=== PATIENT | female | born 1975 | race African-American/Black ===

== ENCOUNTER 2017-04-26 15:53 | Emergency (ER) | payer OTHER ==
[2017-04-26 16:29] VITALS: BP 140/69; PULSE 71; TEMP 98; BMI 32.3
[2017-04-26] MEDS ORDERED: IBUPROFEN 400 MG TABLET (FP) PO ONE ×2 (16:33→17:00)
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
== END 2017-04-26 17:27 | disposition home or self-care (01) ==
LOC: JERFT 15:53
DX: S93.601A Unspecified sprain of right foot, initial encounter (principal); X50.1XXA Overexertion from prolonged static or awkward postures, initial encounter; Y93.F9 Activity, other caregiving; Y92.218 Other school as the place of occurrence of the external cause; Y99.0 Civilian activity done for income or pay
CPT/HCPCS: 73610-TC-RT; 73630-TC-RT; 99281-25

== ENCOUNTER 2018-08-30 10:56 | Emergency (ER) | payer OTHER ==
[2018-08-30 11:08] VITALS: TEMP 98.8; BMI 33.9
--- NOTE | 2018-08-30 11:22 | PDOC ---
History of Present Illness - General Chief Complaint: Chest Pain Stated Complaint: BLOOD PRESSURE PROBLEM Time Seen by Provider: 08/30/18 11:21 - History of Present Illness Initial Comments: The patient is a 43F w/ a history of arthritis who presents for evaluation of 5 days of chest pain. The patient describes the pain as intermittent, achy, reproducible, non-radiating pain just left of the sternum. The pain is worse with touch and deep inspiration. She is unsure if the pain was sudden onset or gradual The patient reports recently increasing her physical activity, including weight lifting. She denies associated KNAPP, changes in vision, shortness of breath, fevers, abdominal pain, or changes in sensation 08/30/18 11:44 Past History - Past Medical History Allergies/Adverse Reactions: Allergies Allergy/AdvReac Type Severity Reaction Status Date / Time No Known Allergies Allergy Verified 08/30/18 11:02 Home Medications: Ambulatory Orders NK [No Known Home Medication] 06/08/15 COPD: No HTN: Yes - Immunization History Immunization Up to Date: Yes - Suicide/Smoking/Psychosocial Hx Smoking History: Current every day smoker Have you smoked in the past 12 months: No Number of Cigarettes Smoked Daily: 2 If you are a former smoker, when did you quit?: 10 years Information on smoking cessation initiated: No Hx Alcohol Use: Yes (about 5 times/week) Drug/Substance Use Hx: No Substance Use Type: Alcohol Review of Systems - Review of Systems Able to Perform ROS?: Yes Comments:: GENERAL/CONSTITUTIONAL: No fever or chills. No weakness HEAD, EYES, EARS, NOSE AND THROAT: No change in vision. No ear pain or discharge. No sore throat CARDIOVASCULAR: No shortness of breath or BLE swelling RESPIRATORY: No cough, wheezing, or hemoptysis GASTROINTESTINAL: No nausea, vomiting, diarrhea or constipation GENITOURINARY: No dysuria, frequency, or change in urination MUSCULOSKELETAL: No joint or muscle swelling or pain. No neck or back pain SKIN: No rash NEUROLOGIC: No headache, vertigo, loss of consciousness, or change in strength/ sensation ENDOCRINE: No increased thirst. No abnormal weight change HEMATOLOGIC/LYMPHATIC: No anemia, easy bleeding, or history of blood clots ALLERGIC/IMMUNOLOGIC: No hives or skin allergy 08/30/18 12:20 Is the patient limited Chinese proficient: No *Physical Exam - Vital Signs Last Vital Signs Temp Pulse Resp BP Pulse Ox 98.8 F 79 18 186/102 H 97 08/30/18 11:02 08/30/18 11:02 08/30/18 11:02 08/30/18 11:02 08/30/18 11:02 - Physical Exam Comments: GENERAL: Awake, alert, and fully oriented, in no acute distress HEAD: No signs of trauma, normocephalic, atraumatic EYES: PERRLA, EOMI, sclera anicteric, conjunctiva clear ENT: Auricles normal inspection, hearing grossly normal, nares patent, oropharynx clear without exudates. Moist mucosa NECK: Normal ROM, supple, no lymphadenopathy, JVD, or masses LUNGS: No distress, speaks full sentences, clear to auscultation bilaterally HEART: Regular rate and rhythm, normal S1 and S2, no murmurs, rubs or gallops, peripheral pulses normal and equal bilaterally CHEST: Reproducible L ant. chest pain ABDOMEN: Soft, nontender, normoactive bowel sounds. No guarding, no rebound EXTREMITIES : Normal inspection, Normal range of motion, no edema. No clubbing or cyanosis NEUROLOGICAL: Cranial nerves II through XII grossly intact. Normal speech, normal gait, no focal sensorimotor deficits SKIN: Warm, Dry, normal turgor, no rashes or lesions noted 08/30/18 12:22 ED Treatment Course - LABORATORY CBC & Chemistry Diagram: 08/30/18 12:00 08/30/18 12:00 Medical Decision Making - Medical Decision Making The patient presents for 5d of intermittent L sided chest pain Ddx: ACS, PE, MSK pain; considered PNA, PNX; not likely but considered AD CMP, CBC, cardiac profile, D-dimer, Coags ECG CXR 1L NS Toradol 15mg IV once for pain Patient does not have a PCP and does not currently take any medications 08/30/18 11:42 ECG w/o evidence of acute ischemia, RRR w/ 1 PVC 08/30/18 12:23 No leukocytosis No anemia 08/30/18 12:42 Trop I neg, not likely NC D-dimer neg, low likelihood of PE Lytes wnl UA w/o evidence of UTI CXR w/o evidence of PNA, PNX Repeat BP 127/73 Pain likely MSK Pain improved s/p Toradol IV Plan of D/C w/ PCP f/u Discharge instructions and return precautions given Patient is in agreement and verbalizes understanding Dispo: home 08/30/18 13:14 *DC/Admit/Observation/Transfer Diagnosis at time of Disposition: Chest pain Qualifiers: Chest pain type: unspecified Qualified Code(s): R07.9 - Chest pain, unspecified - Discharge Dispostion Disposition: HOME Condition at time of disposition: Improved Decision to Admit order: No - Referrals Referrals: [facility] [Provider Group] Cristobal Hawley MD [Staff Physician] - - Patient Instructions Printed Discharge Instructions: DI for Chest Pain Additional Instructions: You were seen in the Emergency Room for evaluation of chest pain. Please review the handout provided with discharge. Please follow up with your primary care provider within the next 1-3 days. Return to the Emergency Room if you develop worsening pain, fevers, shortness of breath or any new/concerning symptoms - Post Discharge Activity Forms/Work/School Notes: Back to Work
[2018-08-30] MEDS ORDERED: KETOROLAC TROMETHAMINE 15 MG/ML VIAL IVPUSH ONE (11:46)
[2018-08-30] MEDS ORDERED: SODIUM CHLORIDE 0.9% 500 ML INFUS.BAG IV ONE (11:46)
--- NOTE | 2018-08-30 12:01 | PDOC ---
Attending Attestation - Resident Resident Name: Manjinder Davis - ED Attending Attestation I have performed the following: I have examined & evaluated the patient, The case was reviewed & discussed with the resident, I agree w/resident's findings & plan, Exceptions are as noted - Medical Decision Making 08/30/18 11:47 A portion of this note was documented by scribe services under my direction. I have reviewed the details of the note, within reason, and agree with the documentation with the following case summary and management plan written by me. Patient treated in the ED. Nursing notes are reviewed and incorporated into the medical decision-making. Vital signs reviewed. Peripheral IV access obtained by the nurse, laboratory studies are drawn and sent, reviewed and interpreted by myself. Vital Signs Temp Pulse Resp BP Pulse Ox 98.8 F 79 18 186/102 H 97 08/30/18 11:02 08/30/18 11:02 08/30/18 11:02 08/30/18 11:02 08/30/18 11:02 43-year-old obese female with no past medical history, also with no primary care physician, presents with chest pain for 5 days. 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 She believes that lifting has made exacerbated her pain. However, patient reports intermittent reproducible left upper chest pain. Denies shortness of breath. Denies nausea, vomiting, diabetes. Denies exertional component. Patient has never had a recent stress test or an echo. Patient does report a grandmother with a heart attack. Because the pain is last for 5 days, patient came to the ER for an evaluation. Denies prior blood clots, strokes, MIs. Patient's chest pain is atypical for acute coronary syndrome or pulmonary embolism. However, patient noted be hypertensive. EKG is reassuring but we'll send labs including a troponin and d-dimer. Chest x-ray. We'll trial NSAIDs. If the workup is unremarkable, we'll arrange follow-up with a primary care physician for an outpatient basis. 08/30/18 13:34 CBC, BMP 08/30/18 12:00 08/30/18 12:00 CMP Sodium 140 mmol/L (136-145) 08/30/18 12:00 Potassium 4.3 mmol/L (3.5-5.1) 08/30/18 12:00 Chloride 104 mmol/L (98-107) 08/30/18 12:00 Carbon Dioxide 30 mmol/L (21-32) 08/30/18 12:00 Anion Gap 5 MMOL/L (8-16) L 08/30/18 12:00 BUN 8 mg/dL (7-18) 08/30/18 12:00 Creatinine 0.7 mg/dL (0.55-1.3) 08/30/18 12:00 Creat Clearance w eGFR > 60 (>60) 08/30/18 12:00 Random Glucose 96 mg/dL (74-106) 08/30/18 12:00 Calcium 8.9 mg/dL (8.5-10.1) 08/30/18 12:00 Total Bilirubin 0.4 mg/dL (0.2-1) 08/30/18 12:00 AST 19 U/L (15-37) 08/30/18 12:00 ALT 16 U/L (13-61) 08/30/18 12:00 Alkaline Phosphatase 74 U/L (45-117) 08/30/18 12:00 Creatine Kinase 246 IU/L (26-192) H 08/30/18 12:00 Troponin I < 0.02 ng/ml (0.00-0.05) 08/30/18 12:00 Total Protein 7.6 g/dl (6.4-8.2) 08/30/18 12:00 Albumin 4.0 g/dl (3.4-5.0) 08/30/18 12:00 D-dimer negative. Chest xray reviewed: negative. Final diagnosis: atypical chest pain. I feel comfortable discharging patient home for outpatient followup. Will have medical customer service representative will arrange appointment with PMD. <Abhay Brunson - Last Filed: 08/30/18 13:34> - HPI HPI: 08/30/18 12:08 The patient is a 43-year-old female, with no past medical history, who presents to the ED with 5 days of left upper chest pain. Patient works at the [employer] which requires her to lift heavy objects. The patient states that her pain is intermittent, reproducible with palpation, and exacerbated with heavy lifting. She denies having any stress test or an echo in the past . She denies having fever, chills, nausea, vomiting, diarrhea, or abdominal pain. Allergies: NKA Past surgical history: None reported. Social history: None reported - Physicial Exam PE: 08/30/18 12:08 GENERAL: (+)Obese. Awake, alert, and fully oriented, in no acute distress HEAD: No signs of trauma EYES: PERRLA, EOMI, sclera anicteric, conjunctiva clear ENT: Auricles normal inspection, hearing grossly normal, nares patent, oropharynx clear without exudates. Moist mucosa NECK: Normal ROM, supple, no lymphadenopathy, JVD, or masses LUNGS: Breath sounds equal, clear to auscultation bilaterally. No wheezes, and no crackles HEART: Regular rate and rhythm, normal S1 and S2, no murmurs, rubs or gallops ABDOMEN: Soft, nontender, normoactive bowel sounds. No guarding, no rebound. No masses MSK: (+)Reproducible left upper chest pain. EXTREMITIES: Normal range of motion, no edema. No clubbing or cyanosis. No cords, erythema, or tenderness NEUROLOGICAL: Cranial nerves II through XII grossly intact. Normal speech, normal gait SKIN: Warm, Dry, normal turgor, no rashes or lesions noted. <Maame Bar - Last Filed: 08/30/18 14:00> Heart Score/ECG Review - History History: Slightly suspicious - Electrocardiogram EKG: Normal - Age Age: </= 43 - Risk Factors Risk Factors Heart Score: Yes Hx Obesity Based on the list above the patient has:: 1-2 risk factors #1 ECG reviewed & interpreted by me at: 11:10 08/30/18 11:46 NSR 74, occasional PVC, no std/vika, normal axis, normal intervals, QTC 435 msec <Abhay Brunson - Last Filed: 08/30/18 13:34> Attestations - Attestations 08/30/18 12:10 Documentation prepared by Maame Bar, acting as emergency medicine medical director for Abhay Brunson MD. <Maame Bar - Last Filed: 08/30/18 14:00>
[2018-08-30] MEDS ORDERED: KETOROLAC TROMETHAMINE 15 MG/ML VIAL ONE (12:04)
[2018-08-30 12:27] LABS: BASO % 0.5 % (0-2.0); EOS % 1.6 % (0-4.5); HEMATOCRIT 44.3 % (32.4-45.2); HEMOGLOBIN 14.9 GM/dL (10.7-15.3); LYMPH % 19.4 % (8-40); MCH 30.9 pg (25.7-33.7); MCHC 33.6 g/dl (32.0-36.0); MEAN CELL VOLUME 91.9 fl (80-96); MEAN PLT VOLUME 9.4 fl (7.5-11.1); MONO % 3.7 % (3.8-10.2); NEUT % 74.8 % (42.8-82.8); PLATELET COUNT 265 K/MM3 (134-434); RBC 4.81 M/mm3 (3.60-5.2); RDW 12.7 % (11.6-15.6); WHITE BLOOD COUNT 7.7 K/mm3 (4.0-10.0)
[2018-08-30 12:48] LABS: INR 1.04 (0.83-1.09); PROTHROMBIN TIME (PATIENT) 12.3 SEC (9.7-13.0)
[2018-08-30 12:51] LABS: ACTIVATED PTT 31.9 SECONDS (25.2-36.5)
[2018-08-30 13:08] LABS: ALK PHOS 74 U/L (45-117); ANION GAP 5 MMOL/L (8-16); BILIRUBIN,TOTAL 0.4 mg/dL (0.2-1); BLOOD UREA NITROGEN 8 mg/dL (7-18); CALCIUM 8.9 mg/dL (8.5-10.1); CHLORIDE 104 mmol/L (98-107); CO2 30 mmol/L (21-32); CREATININE 0.7 mg/dL (0.55-1.3); GLUCOSE,RANDOM 96 mg/dL (74-106); POTASSIUM 4.3 mmol/L (3.5-5.1); SGOT/AST 19 U/L (15-37); SGPT/ALT 16 U/L (13-61); SODIUM 140 mmol/L (136-145); TOT PROT 7.6 g/dl (6.4-8.2)
[2018-08-30 13:56] VITALS: BP 162/77; PULSE 82
--- NOTE | 2018-08-30 16:13 | EKG ---
Test Reason : Blood Pressure : / mmHG Vent. Rate : 074 BPM Atrial Rate : 074 BPM P-R Int : 144 ms QRS Dur : 082 ms QT Int : 392 ms P-R-T Axes : 065 005 062 degrees QTc Int : 435 ms SINUS RHYTHM WITH OCCASIONAL PREMATURE VENTRICULAR COMPLEXES OTHERWISE NORMAL ECG WHEN COMPARED WITH ECG OF 30-DEC-2015 20:35, PREMATURE VENTRICULAR COMPLEXES ARE NOW PRESENT Confirmed by MD ASHLEIGH, SAMRA ([id number]) on 08/30/2018 4:12:59 PM Referred By: Confirmed By:SAMRA SOTELO MD
== END 2018-08-30 13:56 | disposition home or self-care (01) ==
LOC: JER 10:56
PROC: 3E0333Z Introduction of Anti-inflammatory into Peripheral Vein, Percutaneous Approach (ICD-10-PCS; principal; 2018-08-30)
DX: R07.9 Chest pain, unspecified (principal); F17.210 Nicotine dependence, cigarettes, uncomplicated
CPT/HCPCS: 36415; 71045-TC-FY; 80053; 82550; 82553; 84484; 85025; 85379; 85610; 85730; 93005; 93010; 99282-25

== ENCOUNTER 2018-11-29 14:11 | Emergency (ER) | payer OTHER ==
[2018-11-29 14:44] VITALS: BP 124/83; PULSE 63; TEMP 99.2; BMI 34.7
--- NOTE | 2018-11-29 14:50 | PDOC ---
History of Present Illness - General Chief Complaint: Respiratory Stated Complaint: COUGH Time Seen by Provider: 11/29/18 14:47 - History of Present Illness Initial Comments: Lou Almazan is a 43yo woman with a PMH of HTN who presents with persistent cough since Wednesday with congestion, shivering, anorexia, nausea, and upper chest soreness. She states that she first thought she might feel sick on Wednesday , but she first started coughing on . She additionally felt feverish and had some shivering over the weekend. She has had a poor appetite with some nausea but believes that she has been staying hydrated. 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 She did not get a flu shot, and does not know if any of the kids are sick. Past History - Past Medical History Allergies/Adverse Reactions: Allergies Allergy/AdvReac Type Severity Reaction Status Date / Time No Known Allergies Allergy Verified 11/29/18 14:40 Home Medications: Ambulatory Orders NK [No Known Home Medication] 06/08/15 COPD: No HTN: Yes (NOT ON MEDICATION) - Immunization History Immunization Up to Date: Yes - Suicide/Smoking/Psychosocial Hx Smoking History: Never smoked Have you smoked in the past 12 months: No Number of Cigarettes Smoked Daily: 2 If you are a former smoker, when did you quit?: 10 years Hx Alcohol Use: Yes (SOCIAL) Drug/Substance Use Hx: No Substance Use Type: Alcohol Review of Systems - Review of Systems Comments:: General: No fevers, no chills, no weight or appetite change, no malaise HEENT: No changes in vision, no changes in hearing, no congestion, no sore throat CV: No chest pain, no palpitations, no LE edema Pulm: See HPI GI: No nausea or vomiting, no change in bowel habits, no melena : No frequency, no urgency, no dysuria Musc: No back pain, no joint swelling, no recent injury Skin: No rash, no lesions, no erythema Endo: No excessive thirst, no heat/cold intolerance Heme: No unusual bruising or bleeding, no swollen glands Neuro: No syncope, no numbness/tingling, no focal weakness Vasc: No claudication Psych: No recent change in mood, no SI or HI *Physical Exam - Vital Signs Last Vital Signs Temp Pulse Resp BP Pulse Ox 99.2 F 63 18 124/83 98 11/29/18 14:13 11/29/18 14:13 11/29/18 14:13 11/29/18 14:13 11/29/18 14:13 - Physical Exam Comments: General: Comfortable, no acute distress HEENT: PERRL, EOMI, MMM, voice normal, normal neck ROM, no LAD Cards: RRR, no murmur appreciated Pulm: Comfortable on room air, clear to auscultation bilaterally, frequent dry cough Abd: Soft, nontender, nondistended Ext: Atraumatic. No LE edema. ROM intact. Strength 5/5 and equal bilaterally Vasc: Extremities WWP Skin: Normal color, no rashes or lesions Neuro: A&Ox3, CN grossly intact, normal speech, motor/sensory grossly intact and symmetric Psych: Mood appropriate to situation Moderate Sedation - Procedure Monitoring Vital Signs: Procedure Monitoring Vital Signs Temperature 99.2 F 11/29/18 14:13 Pulse Rate 63 11/29/18 14:13 Respiratory Rate 18 11/29/18 14:13 Blood Pressure 124/83 11/29/18 14:13 O2 Sat by Pulse Oximetry (%) 98 11/29/18 14:13 ED Treatment Course - RADIOLOGY Radiology Studies Ordered: Category Date Time Status CHEST PA & LAT [RAD] Stat Radiology 11/29/18 14:47 Ordered Medical Decision Making - Medical Decision Making 11/29/18 14:47 Lou Almazan is a 43yo woman with a PMH of HTN who presents with persistent cough since Wednesday with congestion, shivering, anorexia, nausea, and upper chest soreness. 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 Most likely infectious, possibly influenza. She did not receive the flu shot this year - Influenza sent - CXR to r/o pneumonia given chest soreness, though unlikely as she has no abnormalities on lung exam, the pain is not pleuritic, no current fevers 11/29/18 15:15 - CXR reviewed. No concern for pneumonia or focal consolidation - Discussed with Ms Almazan. Will send home with instructions for home care. She will be called if her influenza test is positive. She should follow up with the medicine resident clinic if needed. She agrees to this plan. Discussed with Dr Seaman. Jordyn Vinson PGY1 *DC/Admit/Observation/Transfer Diagnosis at time of Disposition: URI with cough and congestion - Discharge Dispostion Disposition: HOME Condition at time of disposition: Good Decision to Admit order: No - Referrals Referrals: [facility] [place] [facility] [Provider Group] - Patient Instructions Printed Discharge Instructions: DI for Common Cold Additional Instructions: Discharge Instructions: - You were seen in the emergency department for cough. You had an xray to rule out pneumonia, and this was normal. Your symptoms are most likely caused by a respiratory virus and will resolve with time. Home Care: - You can buy medications to take at home over [facility] counter - You can take an antihistamine with decongestant such as Raiza-D or Zyrtec- D. These are available at the pharmacy counter and may be purchased without a prescription. - You can take a cough medicine that contains an expectorant AND suppressant such as Robitussen DM - Drink plenty of fluids at home, even if you do not feel like eating. Follow Up: - Your symptoms should improve but could linger for up to 2 weeks. If you do not feel better by the end of the week, follow up with primary care. You have been referred to the internal medicine resident clinic. - Seek medical care if your symptoms worsen, you have difficulty breathing, or you are unable to stay hydrated. - Post Discharge Activity Forms/Work/School Notes: Back to Work
== END 2018-11-29 15:29 | disposition home or self-care (01) ==
LOC: FER 14:11
DX: J06.9 Acute upper respiratory infection, unspecified (principal); R05 Cough; R09.89 Other specified symptoms and signs involving the circulatory and respiratory systems; I10 Essential (primary) hypertension
CPT/HCPCS: 71046-TC-FY; 87804; 99281-25

== ENCOUNTER 2019-02-22 17:41 | Observation (INO) | payer OTHER ==
--- NOTE | 2019-02-22 17:46 | PDOC ---
Rapid Medical Evaluation Time Seen by Provider: 02/22/19 17:42 Medical Evaluation: Allergies Allergy/AdvReac Type Severity Reaction Status Date / Time No Known Allergies Allergy Verified 11/29/18 14:40 02/22/19 17:42 I have performed a brief in-person evaluation of this patient. The patient presents with a chief complaint of: "My BP is high." +CP Pertinent physical exam findings: RRR. S1S2. No m/r/g. No focal neuro deficits. I have ordered the following: cardiac w/u The patient will proceed to the ED for further evaluation. Discharge Disposition - Diagnosis Chest pain - Referrals - Patient Instructions - Post Discharge Activity
[2019-02-22] MEDS ORDERED: dilTIAZem HCL 50 MG/10 ML - 10 ML VIAL IVPUSH ONE (18:16)
[2019-02-22] MEDS ORDERED: SODIUM CHLORIDE 0.9% 1000 ML INFUS.BAG IV ONE (18:16)
[2019-02-22] MEDS ORDERED: dilTIAZem HCL 50 MG/10 ML - 10 ML VIAL ONE (18:17)
[2019-02-22 18:19] LABS: PH,URINE 6.5 (5.0-8.0); URINE APPEARANCE CLEAR; URINE BILIRUBIN NEGATIVE (NEGATIVE); URINE COLOR YELLOW; URINE GLUCOSE (UA) NEGATIVE (NEGATIVE); URINE KETONE NEGATIVE (NEGATIVE); URINE LEUK ESTERASE NEGATIVE (NEGATIVE); URINE NITRITE NEGATIVE (NEGATIVE); URINE PROTEIN NEGATIVE (NEGATIVE); URINE UROBILINOGEN 0.2 mg/dL (0.2-1.0)
[2019-02-22 18:20] LABS: HCG,QUALITATIVE URINE Negative
[2019-02-22] MEDS ORDERED: dilTIAZem HCL 30 MG TABLET (FP) ONE (18:28)
[2019-02-22] MEDS ORDERED: dilTIAZem HCL 30 MG TABLET (FP) PO ONE (18:34)
[2019-02-22 18:37] LABS: BASO % 0.6 % (0-2.0); EOS % 2.3 % (0-4.5); HEMATOCRIT 43.4 % (32.4-45.2); HEMOGLOBIN 14.7 GM/dL (10.7-15.3); LYMPH % 27.8 % (8-40); MCH 31.6 pg (25.7-33.7); MCHC 33.8 g/dl (32.0-36.0); MEAN CELL VOLUME 93.3 fl (80-96); MEAN PLT VOLUME 9.5 fl (7.5-11.1); MONO % 6.3 % (3.8-10.2); PLATELET COUNT 263 K/MM3 (134-434); RBC 4.65 M/mm3 (3.60-5.2); RDW 12.9 % (11.6-15.6); WHITE BLOOD COUNT 9.8 K/mm3 (4.0-10.0)
--- NOTE | 2019-02-22 18:46 | PDOC ---
Documentation entered by Bradly Ocampo SCRIBE, acting as scribe for Kathy Washburn DO. Kathy Washburn DO: This documentation has been prepared by the Terrence barfield Nirvannie, SCRIBE, under my direction and personally reviewed by me in its entirety. I confirm that the documentation accurately reflects all work, treatment, procedures, and medical decision making performed by me. History of Present Illness - General Chief Complaint: Blood Pressure Problem Stated Complaint: HIGH BLOOD PRESSURE Time Seen by Provider: 02/22/19 17:42 History Source: Patient Exam Limitations: No Limitations - History of Present Illness Initial Comments: 02/22/19 18:53 The patient is a 43 year old female, with a significant past medical history of elevated blood pressure (not on medications and does not have a formal diagnosis ), who presents to the emergency department with, 1 day of weakness, nausea, and diaphoresis. As per patient, upon her arrival to work she noticed she was not feeling well with associated headache, dizziness, chest pain, and right sided calf cramping. She describes her chest pain as tightness with associated palpitations. She endorses similar episodes intermittently for the past week. Patient notes she should be on hypertension medications but, has not been formally diagnosed and been attempting to control her blood pressure with diet and exercise (unfortunately noncompliant with diet and exercise). While at work today, her symptoms persisted, prompting her check her blood pressure which was elevated 190/110 prompting her arrival to the ED. She denies any changes in visions. She denies any changes in strength or sensation. She denies recent fevers or chills. She denies recent vomit, diarrhea or constipation. She denies recent dysuria, frequency, urgency or hematuria. Allergies: NKDA Past surgical history: None reported. Social history: Nonsmoker. Denies EtOH use and recreational drug use. Primary Care Physician: Dr. Anderson ([place]) Past History - Past Medical History Allergies/Adverse Reactions: Allergies Allergy/AdvReac Type Severity Reaction Status Date / Time No Known Allergies Allergy Verified 02/22/19 17:48 Home Medications: Ambulatory Orders NK [No Known Home Medication] 06/08/15 COPD: No HTN: Yes (NOT ON MEDICATION) - Immunization History Immunization Up to Date: Yes - Suicide/Smoking/Psychosocial Hx Smoking History: Never smoked Have you smoked in the past 12 months: No Number of Cigarettes Smoked Daily: 2 If you are a former smoker, when did you quit?: 10 years Information on smoking cessation initiated: No Hx Alcohol Use: Yes (daily) Drug/Substance Use Hx: Yes (marijuana) Substance Use Type: Alcohol Review of Systems - Review of Systems Able to Perform ROS?: Yes Comments:: 02/22/19 18:54 GENERAL/CONSTITUTIONAL: No fever or chills. +weakness. HEAD, EYES, EARS, NOSE AND THROAT: No change in vision. No ear pain or discharge. No sore throat. GASTROINTESTINAL: No nausea, vomiting, diarrhea or constipation. GENITOURINARY: No dysuria, frequency, or change in urination. CARDIOVASCULAR: +chest pain and palpitations.+Diaphoresis. No shortness of breath. RESPIRATORY: No cough, wheezing, or hemoptysis. MUSCULOSKELETAL: +R calf cramping. No neck or back pain. SKIN: No rash NEUROLOGIC: +Headache. +Dizziness. No, loss of consciousness, or change in strength/sensation. ENDOCRINE: No increased thirst. No abnormal weight change. HEMATOLOGIC/LYMPHATIC: No anemia, easy bleeding, or history of blood clots. ALLERGIC/IMMUNOLOGIC: No hives or skin allergy. All Other Systems: Reviewed and Negative *Physical Exam - Vital Signs Last Vital Signs Temp Pulse Resp BP Pulse Ox 98.4 F 87 19 146/81 99 02/22/19 17:43 02/22/19 17:43 02/22/19 17:43 02/22/19 17:43 02/22/19 17:43 - Physical Exam Comments: 02/22/19 18:54 Constitutional: Awake, alert, oriented. No acute distress. Head: Normocephalic. Atraumatic Eyes: PERRL. EOMI. Conjunctivae are not pale. ENT: Mucous membranes are moist and intact. Posterior pharynx without exudates or erythema. Uvula midline. Neck: Supple. Full ROM. No lymphadenopathy. Cardiovascular: +Tachycardic. +Irregularly irregular. Pulmonary/Chest: No evidence of respiratory distress. Clear to auscultation bilaterally No wheezing, rales or rhonchi. Abdominal: Soft and non-distended. There is no tenderness. No rebound, guarding or rigidity. No organomegaly. No palpable masses. Good bowel sounds. Back: No CVA tenderness. Musculoskeletal: No edema. No cyanosis. No clubbing. Full range of motion in all extremities. No calf tenderness. Radial/pedal pulses are intact and 2+ bilaterally Skin: Skin is warm and dry. No petechiae. No purpura. Neurological: Alert and oriented to person, place, and time. Cranial nerves II -XII are grossly intact. Normal speech. Strength is grossly symmetric. No sensory deficits. Psychiatric: Good eye contact. Normal interaction, affect and behavior. Heart Score/ECG Review - ECG Intrepretation Comment:: 02/22/19 18:45 afib at 146, nl axis, mild st depression diffusely 02/22/19 20:22 repeat ekg: afib at 100, nl axis, no acute st/t wave findings ED Treatment Course - LABORATORY CBC & Chemistry Diagram: 02/22/19 18:20 02/22/19 18:20 - ADDITIONAL ORDERS Additional order review: Laboratory Results 02/22/19 18:01 Urine HCG, Qual Negative - RADIOLOGY Radiology Studies Ordered: Category Date Time Status CHEST X-RAY PORTABLE* [RAD] Stat Radiology 02/22/19 18:02 Ordered Medical Decision Making - Critical Care Time Total Critical Care Time (minutes): 35 Critical Care Statement: The care of this patient involved high complexity decision making to prevent further life threatening deterioration of the patient 's condition and/or to evaluate & treat vital organ system(s) failure or risk of failure. - Medical Decision Making 02/22/19 18:41 a/p: 43yo female with hx of untreated BP presents with palpitations, cp -pt checked bp at work at bp was 190 systolic -hx of htn that she was trying to control with diet and exercise, but not watching her diet or exercise -leg cramping this week -intermittent palpitations and cp x weeks at least once a week -pt arrives in afib with rvr -no hx of afib -pt arrives with cp and hr 180s afib -no allergies -no other medical problems -stat labs ordered, cxr, ekg -cardizem iv given 02/22/19 18:45 after iv cardizem hr 90s -given po dose of cardizem -labs pending -hx of hysterectomy 02/22/19 18:46 cp resolved with lowering hr 6:30pm 20mg IV and 30mg PO Cardizem given and patient improved, denies any further palpitations. 02/22/19 18:56 cxr clear 02/22/19 19:16 trop negative h/h stable dimer pending electrolytes stable 02/22/19 20:32 discussed labs with the patient, will consult cards microblog sent to [facility] 02/22/19 21:00 case discussed with [facility] who accepts pt to tele *DC/Admit/Observation/Transfer Diagnosis at time of Disposition: Chest pain, New onset atrial fibrillation - Discharge Dispostion Condition at time of disposition: Guarded Decision to Admit order: Yes - Referrals - Patient Instructions - Post Discharge Activity - Attestations Physician Attestion: 02/22/19 20:34 I, Dr. Kathy Washburn, DO, attest that this document has been prepared under my direction and personally reviewed by me in its entirety. I further attest, that it accurately reflects all work, treatment, procedures and medical decision -making performed by me.
[2019-02-22 19:05] LABS: ALBUMIN 3.9 g/dl (3.4-5.0); ALK PHOS 73 U/L (45-117); ANION GAP 6 MMOL/L (8-16); BILIRUBIN,TOTAL 0.4 mg/dL (0.2-1); BLOOD UREA NITROGEN 7 mg/dL (7-18); CALCIUM 9.3 mg/dL (8.5-10.1); CHLORIDE 104 mmol/L (98-107); CO2 27 mmol/L (21-32); CREATININE 0.6 mg/dL (0.55-1.3); GLUCOSE,RANDOM 97 mg/dL (74-106); MAGNESIUM 2.2 mg/dL (1.8-2.4); POTASSIUM 3.9 mmol/L (3.5-5.1); SGOT/AST 17 U/L (15-37); SGPT/ALT 16 U/L (13-61); SODIUM 137 mmol/L (136-145); TOT PROT 7.6 g/dl (6.4-8.2)
[2019-02-22 19:54] LABS: INR 1.01 (0.83-1.09); PROTHROMBIN TIME (PATIENT) 11.9 SEC (9.7-13.0)
[2019-02-22] MEDS ORDERED: ASPIRIN 81 MG CHEWABLE TABLETS PO ONE (20:36)
[2019-02-22] MEDS ORDERED: ASPIRIN 81 MG CHEWABLE TABLETS ONE (20:37)
--- NOTE | 2019-02-22 20:52 | PN ---
Teaching Attending Note Name of Resident: Tao Jane ATTENDING PHYSICIAN STATEMENT I saw and evaluated the patient. I reviewed the resident's note and discussed the case with the resident. I agree with the resident's findings and plan as documented. SUBJECTIVE: Patient is a 43 year old woman with a PMH of HTN (not on medications), who presents to the ER with weakness, nausea, and diaphoresis for one day. Upon her arrival to work she noticed she was not feeling well with associated headache, dizziness, chest pain, and right sided calf cramping. She describes her chest pain as tightness with associated palpitations. She has had similar episodes intermittently for the past week. Patient notes she should be on hypertension medications but, has not been formally diagnosed and been attempting to control her blood pressure with diet and exercise (unfortunately noncompliant with diet and exercise). While at work today, her symptoms persisted, prompting her check her blood pressure which was elevated 190/110. She denies any changes in visions, recent fevers, chills, vomiting, diarrhea, constipation, dysuria, frequency, urgency or hematuria. OBJECTIVE: Alert Vital Signs Period Temp Pulse Resp BP Sys/Jay Pulse Ox Last 24 Hr 98.4 F 87-191 17-19 105-146/64-112 97-100 HEENT: No Jaundice, eye redness or discharge, PERRLA, EOMI. Normocephalic, atraumatic. External ears are normal and hearing is grossly intact. No nasal discharge. Neck: Supple, nontender. No palpable adenopathy or thyromegaly. No JVD Chest: Good effort. Clear to auscultation and percussion. Heart: Irregularly irregular. No S3, rub or murmur Abdomen: Not distended, soft, nontender and no HSM. No rebound or guarding. Normal bowel sounds. Ext: Peripheral pulses intact. No leg edema. Skin: Warm and dry. No petechiae, rash or ecchymosis. Neuro: Alert. Oriented x3. CN 2-12 grossly intact. Sensation grossly intact in all four extremities and DTR are symmetric. Psych: Appropriate mood and affect. Good insight. Home Medications Medication Instructions Recorded NK [No Known Home Medication] 06/08/15 Abnormal Lab Results 02/22/19 02/22/19 18:01 18:20 Anion Gap 6 L Creatine Kinase 210 H Ur Specific [place] 1.000 L ASSESSMENT AND PLAN: 1. Chest pain and New Onset Afib - Initial EKG showed afib with RVR and ST depression in V4-6, but once rate improved with IV cardiazem the ST depression resolved. She got IV and PO cardiazem, Aspirin and IV NS in the ER. Initial troponin is negative and TSH is normal. Will admit to telemetry to rule out ACS , get ECHO, leg doppler, fasting lipids and urine toxicology. Continue PO cardiazem 30 mg PO q 6 hours. 2. Obesity Counseled on the risks associated with obesity. Will provide patient all the necessary assistance, counseling and positive reinforcement to facilitate weight loss. Consult production control planner. 3. Hypertension - Counseled on the risks associated with uncontrolled hypertension. Will monitor BP closely on the PO cardiazem and adjust treatment after ECHO - may add HCTZ 12.5 mg po qd. Nonpharmacologic measures to control hypertension like weight loss, salt restriction and exercise discussed. 4. DVT prophylaxis - Lovenox 40 mg SQ q 24 hours. 5. Advance directives - Full code
--- NOTE | 2019-02-22 21:57 | HP ---
CHIEF COMPLAINT: Chest pain, palpitations PCP: Dr. Anderson ([place]) HISTORY OF PRESENT ILLNESS: Patient is a 43 y/o F w/ PMHx elevated blood pressure (no formal Dx, no medical Tx), p/w intermittent chest pain a/w palpitations over past week. Over the past day symptoms have progressed and expanded to include weakness, nausea, diaphoresis, dizziness, R calf cramping, and worsening of CP. Pt took BP at work and noted it to be 190/110, prompting ED visit. She has attempted to treat BP with home remedies and diet/exercise but has not been compliant with these regimens and has refused medical therapy to this point. On presentation afebrile , HR 191, BP 146/81. 2 EKGs were performed showing A fib, Pt denies any h/o arrhythmia. Initial labs including TSH, troponin, glucose, and d-dimer were all wnl. CXR negative. Pt received 20 IV diltiazem, 30 PO diltiazem, ASA 324, and 1L bolus NS in ED, subsequent to which symptoms largely resolved. HR improved to 90s, BP normalized to 128/89. Recent Travel: PAST MEDICAL HISTORY: As per [facility] PAST SURGICAL HISTORY: Hysterectomy Social History: Smoking: No Alcohol: No Drugs: No Family History: Allergies No Known Allergies Allergy (Verified 02/22/19 17:48) HOME MEDICATIONS: Home Medications Medication Instructions Recorded NK [No Known Home Medication] 06/08/15 REVIEW OF SYSTEMS As per [facility] PHYSICAL EXAMINATION Vital Signs - 24 hr 02/22/19 02/22/19 02/22/19 17:43 18:20 18:26 Temperature 98.4 F Pulse Rate 87 Pulse Rate [ 191 H 95 H Apical] Respiratory 19 18 17 Rate Blood Pressure 146/81 Blood Pressure 140/112 H 105/64 [Right Arm] O2 Sat by Pulse 99 97 98 Oximetry (%) 02/22/19 20:40 Temperature Pulse Rate Pulse Rate [ 98 H Apical] Respiratory 18 Rate Blood Pressure Blood Pressure 128/89 [Right Arm] O2 Sat by Pulse 100 Oximetry (%) GENERAL: A&Ox3, NAD HEENT: NC/AT, PERRLA, EOMI, MMM NECK: Normal range of motion, supple without lymphadenopathy, JVD, or masses. LUNGS: CTA b/l HEART: irregularly irregular, borderline tachycardia, reproducible tenderness in L subclavicular/suprasternal region ABDOMEN: +bs, soft, NT, ND MUSCULOSKELETAL: Normal range of motion at all joints. No bony deformities or tenderness. No CVA tenderness. UPPER EXTREMITIES: 2+ pulses, warm, well-perfused. No cyanosis. No clubbing. No peripheral edema. LOWER EXTREMITIES: 2+ pulses, warm, well-perfused. No calf tenderness. No peripheral edema. 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 Good eye contact. Appropriate mood and affect. SKIN: Warm, dry, normal turgor, no rashes or lesions noted, normal capillary refill. Laboratory Results - last 24 hr 02/22/19 02/22/19 02/22/19 18:01 18:20 18:20 WBC 9.8 RBC 4.65 Hgb 14.7 Hct 43.4 MCV 93.3 MCH 31.6 MCHC 33.8 RDW 12.9 Plt Count 263 MPV 9.5 Absolute Neuts (auto) 6.2 Neutrophils % 63.0 Lymphocytes % 27.8 D Monocytes % 6.3 Eosinophils % 2.3 Basophils % 0.6 Nucleated RBC % 0 PT with INR 11.90 INR 1.01 D-Dimer Sodium Potassium Chloride Carbon Dioxide Anion Gap BUN Creatinine Creat Clearance w eGFR Random Glucose Calcium Magnesium Total Bilirubin AST ALT Alkaline Phosphatase Creatine Kinase Creatine Kinase Index CK-MB (CK-2) Troponin I Total Protein Albumin TSH Serum , Qual Urine Color Yellow Urine Appearance Clear Urine pH 6.5 D Ur Specific [place] 1.000 L Urine Protein Negative Urine Glucose (UA) Negative Urine Ketones Negative Urine Blood Negative Urine Nitrite Negative Urine Bilirubin Negative Urine Urobilinogen 0.2 Ur Leukocyte Esterase Negative Urine HCG, Qual Negative 02/22/19 02/22/19 02/22/19 18:20 18:20 18:20 WBC RBC Hgb Hct MCV MCH MCHC RDW Plt Count MPV Absolute Neuts (auto) Neutrophils % Lymphocytes % Monocytes % Eosinophils % Basophils % Nucleated RBC % PT with INR INR D-Dimer Sodium 137 Potassium 3.9 Chloride 104 Carbon Dioxide 27 Anion Gap 6 L BUN 7 Creatinine 0.6 Creat Clearance w eGFR 108.11 Random Glucose 97 Calcium 9.3 Magnesium 2.2 Total Bilirubin 0.4 AST 17 ALT 16 Alkaline Phosphatase 73 Creatine Kinase 210 H Creatine Kinase Index 1.2 CK-MB (CK-2) 2.6 Troponin I < 0.02 Total Protein 7.6 Albumin 3.9 TSH 1.52 Serum , Qual Negative Urine Color Urine Appearance Urine pH Ur Specific [place] Urine Protein Urine Glucose (UA) Urine Ketones Urine Blood Urine Nitrite Urine Bilirubin Urine Urobilinogen Ur Leukocyte Esterase Urine HCG, Qual 02/22/19 18:20 WBC RBC Hgb Hct MCV MCH MCHC RDW Plt Count MPV Absolute Neuts (auto) Neutrophils % Lymphocytes % Monocytes % Eosinophils % Basophils % Nucleated RBC % PT with INR INR D-Dimer < 215 Sodium Potassium Chloride Carbon Dioxide Anion Gap BUN Creatinine Creat Clearance w eGFR Random Glucose Calcium Magnesium Total Bilirubin AST ALT Alkaline Phosphatase Creatine Kinase Creatine Kinase Index CK-MB (CK-2) Troponin I Total Protein Albumin TSH Serum , Qual Urine Color Urine Appearance Urine pH Ur Specific [place] Urine Protein Urine Glucose (UA) Urine Ketones Urine Blood Urine Nitrite Urine Bilirubin Urine Urobilinogen Ur Leukocyte Esterase Urine HCG, Qual ASSESSMENT/PLAN: 43 y/o F w/ PMHx elevated blood pressure (no formal Dx, no medical Tx), p/w progressively worsening chest pain and palpitations over past week with home BP measured at 190/110 #A -new onset Afib -[id number] score 2, F <65 y/o w/ HTN, may require anticoagulation -HTN w/ possible periods of hypertensive urgency, not on treatment -HR and BP corrected with diltiazem -initial troponin negative -TSH negative -d-dimer negative -needs DVT r/o #P -cont PO diltiazem 30 q6h -cardiology consulted (Dr. Anderson) -echocardiogram -LE duplex US -trend troponins -lipid profile -U Tox -no IVF -f/u BMP, Mg, Phos -Lovenox for DVT PPx -full code -observe on telemetry Visit type - Emergency Visit Emergency Visit: Yes ED Registration Date: 02/22/19 Care time: The patient presented to the Emergency Department on the above date and was hospitalized for further evaluation of their emergent condition. - New Patient This patient is new to me today: Yes Date on this admission: 02/22/19 - Critical Care Critical Care patient: No
[2019-02-23] MEDS ORDERED: dilTIAZem HCL 30 MG TABLET (FP) ONE ×3 (00:31→12:15)
[2019-02-23] MEDS: dilTIAZem HCL 30 MG TABLET (FP) PO SCH ×4 (00:35→17:22)
[2019-02-23 00:40] LABS: COCAINE, UR NEGATIVE ng/ml (CUTOFF=300); METHADONE, UR NEGATIVE ng/ml (CUTOFF=300); OPIATES, URI NEGATIVE ng/ml (CUTOFF=300); PHENCYCLIDINE,URINE NEGATIVE ng/ml (CUTOFF=25); URINE AMPHETAMINES NEGATIVE ng/ml (CUTOFF=500); URINE BARBITURATES NEGATIVE ng/ml (CUTOFF=200); URINE BENZODIAZEPINES NEGATIVE ng/ml (CUTOFF=200)
[2019-02-23 07:52] LABS: BASO % 0.5 % (0-2.0); EOS % 2.5 % (0-4.5); HEMATOCRIT 41.9 % (32.4-45.2); HEMOGLOBIN 14.5 GM/dL (10.7-15.3); LYMPH % 29.9 % (8-40); MCH 31.5 pg (25.7-33.7); MCHC 34.6 g/dl (32.0-36.0); MEAN CELL VOLUME 91.1 fl (80-96); MEAN PLT VOLUME 9.3 fl (7.5-11.1); MONO % 5.8 % (3.8-10.2); NEUT % 61.3 % (42.8-82.8); PLATELET COUNT 256 K/MM3 (134-434); RDW 12.8 % (11.6-15.6); WHITE BLOOD COUNT 6.1 K/mm3 (4.0-10.0)
[2019-02-23 08:10] LABS: ANION GAP 7 MMOL/L (8-16); BLOOD UREA NITROGEN 6 mg/dL (7-18); CHLORIDE 107 mmol/L (98-107); CHOLESTEROL 173 mg/dL (50-200); CO2 26 mmol/L (21-32); CREATININE 0.6 mg/dL (0.55-1.3); GLUCOSE,RANDOM 107 mg/dL (74-106); HDL CHOLESTEROL 75 mg/dL (40-60); MAGNESIUM 2.2 mg/dL (1.8-2.4); PHOSPHOROUS 3.7 mg/dL (2.5-4.9); POTASSIUM 3.9 mmol/L (3.5-5.1); SODIUM 141 mmol/L (136-145); TRIGLYCERIDES 83 mg/dL (0-150)
[2019-02-23] MEDS ORDERED: ENOXAPARIN NA (PORCINE) 40 MG/0.4 ML DISP.SYRIN SQ SCH (10:00)
[2019-02-23] MEDS ORDERED: ENOXAPARIN NA (PORCINE) 40 MG/0.4 ML DISP.SYRIN SQ ONE (10:21)
--- NOTE | 2019-02-23 12:07 | EKG ---
Test Reason : Blood Pressure : / mmHG Vent. Rate : 146 BPM Atrial Rate : 150 BPM P-R Int : 000 ms QRS Dur : 086 ms QT Int : 308 ms P-R-T Axes : 000 007 077 degrees QTc Int : 479 ms ATRIAL FIBRILLATION WITH RAPID VENTRICULAR RESPONSE NONSPECIFIC ST AND T WAVE ABNORMALITY ABNORMAL ECG WHEN COMPARED WITH ECG OF 30-AUG-2018 11:08, ATRIAL FIBRILLATION HAS REPLACED SINUS RHYTHM VENT. RATE HAS INCREASED BY [address] NOW DEPRESSED IN INFERIOR LEADS NON-SPECIFIC CHANGE IN ST SEGMENT IN LATERAL LEADS Confirmed by DESTINEE MURRELL MD ([id number]) on 02/23/2019 12:07:29 PM Referred By: Confirmed By:DESTINEE MURRELL MD
--- NOTE | 2019-02-23 12:07 | EKG ---
Test Reason : Blood Pressure : / mmHG Vent. Rate : 100 BPM Atrial Rate : 115 BPM P-R Int : 000 ms QRS Dur : 080 ms QT Int : 344 ms P-R-T Axes : 000 011 074 degrees QTc Int : 443 ms ATRIAL FIBRILLATION ABNORMAL ECG WHEN COMPARED WITH ECG OF 30-AUG-2018 11:08, ATRIAL FIBRILLATION HAS REPLACED SINUS RHYTHM Confirmed by DESTINEE MURRELL MD ([id number]) on 02/23/2019 12:07:11 PM Referred By: Confirmed By:DESTINEE MURRELL MD
--- NOTE | 2019-02-23 12:19 | ECHO ---
Name: BOYD BIANCHI Exam:Adult Echocardiogram Study Date: 02/23/2019 07:55 AM Age: 43 yrs Reason For Study: LV Function Height: 66 in Weight: 215 lb BSA: 2.1 m2 MMode/2D Measurements & Calculations IVSd: 1.2 cm Ao root diam: 2.7 cm LVIDd: 4.7 cm LA dimension: 4.0 cm LVIDs: 2.5 cm LVPWd: 1.2 cm EDV(Teich): 102.7 ml LVOT diam: 2.0 cm ESV(Teich): 22.6 ml LAV (MOD-bp): 66.0 ml Doppler Measurements & Calculations MV E max james: 54.8 cm/sec Ao V2 max: 124.9 cm/sec MV A max james: 64.0 cm/sec Ao max P.2 mmHg MV E/A: 0.86 MV dec time: 0.14 sec ALICE(V,D): 2.7 cm2 LV V1 max P.3 mmHg Med Peak E' James: 6.3 cm/sec LV V1 max: 103.3 cm/sec Med E/e': 8.7 Lat Peak E' James: 9.7 cm/sec Lat E/e': 5.7 PI Vmax: 112.7 cm/sec Procedure A complete two-dimensional transthoracic echocardiogram was performed (2D, M-mode, Doppler and color flow Doppler). Left Ventricle The left ventricular size, thickness and function are normal. The left ventricular ejection fraction is normal. Ejection Fraction = 60-65%. The left ventricular wall motion is normal. Right Ventricle The right ventricle is normal in size and function. Atria The left atrium is mildly dilated. Right atrial size is normal. Mitral Valve There is no mitral regurgitation noted. Tricuspid Valve There is trace tricuspid regurgitation. There was insufficient TR detected to calculate RV systolic p ressure. Aortic Valve The aortic valve is trileaflet. No hemodynamically significant valvular aortic stenosis. No aortic regurgitation is present. Pulmonic Valve There is no pulmonic valvular regurgitation. Great Vessels The aortic root is normal size. Pericardium/Pleura There is no pericardial effusion. Interpretation Summary The left ventricular size, thickness and function are normal The right ventricle is normal in size and function. The left atrium is mildly dilated. There is trace tricuspid regurgitation. MD Basilio Olguin 02/23/2019 12:18 PM
--- NOTE | 2019-02-23 14:26 | PN ---
Teaching Attending Note Name of Resident: Katina Diaz ATTENDING PHYSICIAN STATEMENT I saw and evaluated the patient. I reviewed the resident's note and discussed the case with the resident. I agree with the resident's findings and plan as documented with exceptions below. SUBJECTIVE: Patient seen and examined. Denies any palpitations, or dizziness, Some chest discomfort but improved. No dyspnea or new concerns. OBJECTIVE: Vital Signs Period Temp Pulse Resp BP Sys/Jay Pulse Ox Last 24 Hr 98.4 F 70-191 17-19 105-146/64-112 97-100 Intake & Output 02/20/19 02/21/19 02/22/19 02/23/19 23:59 23:59 23:59 23:59 Weight 215 lb General: sitting in chair in no acute distress Chest: CTAB, no rales or wheezing Abdomen;Soft, obese, NT CVS:S1S2 irregularly irregular Extremities: no edema Home Medications Medication Instructions Recorded NK [No Known Home Medication] 06/08/15 Active Medications Diltiazem HCl (Cardizem -) 30 mg PO Q6HPO [facility] Last Admin: 02/23/19 12:19 Dose: 30 mg Enoxaparin Sodium (Lovenox -) 40 mg SQ DAILY [facility] Last Admin: 02/23/19 10:29 Dose: 40 mg Laboratory Results - last 24 hr 02/22/19 02/22/19 02/22/19 18:01 18:20 18:20 WBC 9.8 RBC 4.65 Hgb 14.7 Hct 43.4 MCV 93.3 MCH 31.6 MCHC 33.8 RDW 12.9 Plt Count 263 MPV 9.5 Absolute Neuts (auto) 6.2 Neutrophils % 63.0 Lymphocytes % 27.8 D Monocytes % 6.3 Eosinophils % 2.3 Basophils % 0.6 Nucleated RBC % 0 PT with INR 11.90 INR 1.01 D-Dimer Sodium Potassium Chloride Carbon Dioxide Anion Gap BUN Creatinine Creat Clearance w eGFR Random Glucose Calcium Phosphorus Magnesium Total Bilirubin AST ALT Alkaline Phosphatase Creatine Kinase Creatine Kinase Index CK-MB (CK-2) Troponin I Total Protein Albumin Triglycerides Cholesterol Total LDL Cholesterol HDL Cholesterol TSH Serum , Qual Urine Color Yellow Urine Appearance Clear Urine pH 6.5 D Ur Specific [place] 1.000 L Urine Protein Negative Urine Glucose (UA) Negative Urine Ketones Negative Urine Blood Negative Urine Nitrite Negative Urine Bilirubin Negative Urine Urobilinogen 0.2 Ur Leukocyte Esterase Negative Urine HCG, Qual Negative Opiates Screen Methadone Screen Barbiturate Screen Phencyclidine Screen Ur Amphetamines Screen MDMA (Ecstasy) Screen Benzodiazepines Screen Cocaine Screen U Marijuana (THC) Screen 02/22/19 02/22/19 02/22/19 18:20 18:20 18:20 WBC RBC Hgb Hct MCV MCH MCHC RDW Plt Count MPV Absolute Neuts (auto) Neutrophils % Lymphocytes % Monocytes % Eosinophils % Basophils % Nucleated RBC % PT with INR INR D-Dimer Sodium 137 Potassium 3.9 Chloride 104 Carbon Dioxide 27 Anion Gap 6 L BUN 7 Creatinine 0.6 Creat Clearance w eGFR 108.11 Random Glucose 97 Calcium 9.3 Phosphorus Magnesium 2.2 Total Bilirubin 0.4 AST 17 ALT 16 Alkaline Phosphatase 73 Creatine Kinase 210 H Creatine Kinase Index 1.2 CK-MB (CK-2) 2.6 Troponin I < 0.02 Total Protein 7.6 Albumin 3.9 Triglycerides Cholesterol Total LDL Cholesterol HDL Cholesterol TSH 1.52 Serum , Qual Negative Urine Color Urine Appearance Urine pH Ur Specific [place] Urine Protein Urine Glucose (UA) Urine Ketones Urine Blood Urine Nitrite Urine Bilirubin Urine Urobilinogen Ur Leukocyte Esterase Urine HCG, Qual Opiates Screen Methadone Screen Barbiturate Screen Phencyclidine Screen Ur Amphetamines Screen MDMA (Ecstasy) Screen Benzodiazepines Screen Cocaine Screen U Marijuana (THC) Screen 02/22/19 02/22/19 02/23/19 18:20 23:40 06:35 WBC 6.1 RBC 4.60 Hgb 14.5 Hct 41.9 MCV 91.1 MCH 31.5 MCHC 34.6 RDW 12.8 Plt Count 256 MPV 9.3 Absolute Neuts (auto) 3.7 Neutrophils % 61.3 Lymphocytes % 29.9 Monocytes % 5.8 Eosinophils % 2.5 Basophils % 0.5 Nucleated RBC % 0 PT with INR INR D-Dimer < 215 Sodium Potassium Chloride Carbon Dioxide Anion Gap BUN Creatinine Creat Clearance w eGFR Random Glucose Calcium Phosphorus Magnesium Total Bilirubin AST ALT Alkaline Phosphatase Creatine Kinase Creatine Kinase Index CK-MB (CK-2) Troponin I Total Protein Albumin Triglycerides Cholesterol Total LDL Cholesterol HDL Cholesterol TSH Serum , Qual Urine Color Urine Appearance Urine pH Ur Specific [place] Urine Protein Urine Glucose (UA) Urine Ketones Urine Blood Urine Nitrite Urine Bilirubin Urine Urobilinogen Ur Leukocyte Esterase Urine HCG, Qual Opiates Screen Negative Methadone Screen Negative Barbiturate Screen Negative Phencyclidine Screen Negative Ur Amphetamines Screen Negative MDMA (Ecstasy) Screen Negative Benzodiazepines Screen Negative Cocaine Screen Negative U Marijuana (THC) Screen Negative 02/23/19 06:35 WBC RBC Hgb Hct MCV MCH MCHC RDW Plt Count MPV Absolute Neuts (auto) Neutrophils % Lymphocytes % Monocytes % Eosinophils % Basophils % Nucleated RBC % PT with INR INR D-Dimer Sodium 141 Potassium 3.9 Chloride 107 Carbon Dioxide 26 Anion Gap 7 L BUN 6 L Creatinine 0.6 Creat Clearance w eGFR 108.11 Random Glucose 107 H Calcium 9.0 Phosphorus 3.7 Magnesium 2.2 Total Bilirubin AST ALT Alkaline Phosphatase Creatine Kinase Creatine Kinase Index CK-MB (CK-2) Troponin I Total Protein Albumin Triglycerides 83 Cholesterol 173 Total LDL Cholesterol 91 HDL Cholesterol 75 H TSH Serum , Qual Urine Color Urine Appearance Urine pH Ur Specific [place] Urine Protein Urine Glucose (UA) Urine Ketones Urine Blood Urine Nitrite Urine Bilirubin Urine Urobilinogen Ur Leukocyte Esterase Urine HCG, Qual Opiates Screen Methadone Screen Barbiturate Screen Phencyclidine Screen Ur Amphetamines Screen MDMA (Ecstasy) Screen Benzodiazepines Screen Cocaine Screen U Marijuana (THC) Screen 2D echo results reviewed telemetry Afib, occasional HR 40s-50s EKG 1 Afib with RVR, ST depression > 1mm in II, III, <[address] depressions V3-V6 ASSESSMENT AND PLAN: 43 yof with pMhx of HTN (Not on meds) admitted with chest pain/palpitations, new onset Afib with RVR -New onset Afib with RVR -Chest pain -Rate related ST depressions, r/o underlying CAD, ACS ruled out -Uncontrolled HTN -Suspected MICKEY -H/o Haemorrhoids Plan: Continue cardizem. 2D echo reviewed CHADSVasc2 2, 2.2% stroke risk per year. Discussed with patient about AC, concerned given her h/o haemorrhoidal bleed. Positive famHx of CVA. Will follow up cardiology recs. ACS ruled out, stress testing inpatient vs outpatient per cardiology. TSH/Drug screen noted. Advised outpatient sleep study. Dispo in 24 hours pending cardiology input and clinical course. Plan discussed with patient in detail, all questions answered.
[2019-02-23 15:17] VITALS: BMI 34.4
[2019-02-23] MEDS: ACETAMINOPHEN 325 MG TABLET (FP) PO PRN (16:45)
--- NOTE | 2019-02-23 17:18 | CON.CARD ---
Consult Consult Specialty:: Cardiology Reason for Consultation:: New Onset AFIB - History of Present Illness Chief Complaint: Palpitations History of Present Illness: This is a 43 year old female with a a PMH of HTN. She was not on medication because she was trying to lower her BP "naturally" with weight loss and watching sodium. She decribes herself as a social drinker and drinks about 2 - 3 drinks everyday. She developed chest tightness and palpitations and was noted to have a BP of 190/110 mmHg and was in AFIB at 180 BPM. She was given ID Dilt and converted to NSR. - Alcohol/Substance Use Hx Alcohol Use: Yes (daily) - Smoking History Smoking history: Never smoked Have you smoked in the past 12 months: No Aproximately how many cigarettes per day: 2 If you are a former smoker, when did you quit?: 10 years Home Medications - Allergies Allergies/Adverse Reactions: Allergies Allergy/AdvReac Type Severity Reaction Status Date / Time No Known Allergies Allergy Verified 02/22/19 17:48 - Home Medications Home Medications: Ambulatory Orders NK [No Known Home Medication] 06/08/15 Vital Signs: Vital Signs Temperature 98 F 02/23/19 15:00 Pulse Rate 72 02/23/19 15:00 Respiratory Rate 16 02/23/19 15:00 Blood Pressure 140/96 02/23/19 15:00 O2 Sat by Pulse Oximetry (%) 100 02/23/19 14:59 Constitutional: Yes: Well Nourished Eyes: Yes: WNL HENT: Yes: WNL Neck: Yes: WNL Respiratory: Yes: CTA Bilaterally Gastrointestinal: Yes: Soft Cardiovascular: Yes: Regular Rate and Rhythm (NL S1S2 no MRHG) Extremities: Yes: WNL Edema: No Neurological: Yes: Alert, Oriented - Other Data Labs, Other Data: CBC, BMP 02/23/19 06:35 02/23/19 06:35 INR, PTT INR 1.01 (0.83-1.09) 02/22/19 18:20 Troponin, BNP 02/22/19 18:20 Troponin I < 0.02 Troponin, BNP 02/22/19 18:20 Troponin I < 0.02 Assessment/Plan 43 year old female with a a PMH of HTN. She was not on medication because she was trying to lower her BP "naturally" with weight loss and watching sodium. She decribes herself as a social drinker and drinks about 2 - 3 drinks everyday. She developed chest tightness and palpitations and was noted to have a BP of 190/110 mmHg and was in AFIB at 180 BPM. She was given ID Dilt and converted to NSR. Trop neg TSH 1.52 Tox neg Echo 02/23/19 Nl LV size and fxn Normal RV size and fuction, Trace TR Now on Diltiazem PO 30 mg Q6h New Onset AFIB Her [id number] score is 2 (HTN pls Female). This gives her a 2.2% risk of stroke per year. Therefore I would favor anticoagulation for this patient Would use a DOAC such as Eliquis 5 mg PO Q12 Continue Diltiazem, can change to long acting Advised to significantly limit drinking
--- NOTE | 2019-02-23 18:44 | PN ---
Physical Exam: SUBJECTIVE: Patient seen and examined, feeling pain on left side of the chest. OBJECTIVE: Vital Signs Period Temp Pulse Resp BP Sys/Jay Pulse Ox Last 24 Hr 98 F-98 F 68-98 16-18 118-140/67-99 98-100 GENERAL: The patient is awake, alert, and fully oriented, in no acute distress. HEAD: Normal with no signs of trauma. EYES: PERRL ENT: Oropharynx clear without exudates, moist mucous membranes. NECK: Trachea midline, supple. LUNGS: Breath sounds equal, clear to auscultation bilaterally, no wheezes, no crackles, no accessory muscle use. HEART: Regular rate and rhythm, S1, S2 without murmur, rub or gallop, tenderness to palpation on left side of the chest. ABDOMEN: Obese, soft, nontender, nondistended, normoactive bowel sounds, no guarding. EXTREMITIES: 2+ pulses, no edema. NEUROLOGICAL: Normal speech, gait not observed. PSYCH: Normal mood, normal affect. SKIN: Warm, dry, no rashes. Laboratory Results - last 24 hr 02/22/19 02/22/19 02/22/19 18:01 18:20 18:20 WBC 9.8 RBC 4.65 Hgb 14.7 Hct 43.4 MCV 93.3 MCH 31.6 MCHC 33.8 RDW 12.9 Plt Count 263 MPV 9.5 Absolute Neuts (auto) 6.2 Neutrophils % 63.0 Lymphocytes % 27.8 D Monocytes % 6.3 Eosinophils % 2.3 Basophils % 0.6 Nucleated RBC % 0 PT with INR 11.90 INR 1.01 D-Dimer Sodium Potassium Chloride Carbon Dioxide Anion Gap BUN Creatinine Creat Clearance w eGFR Random Glucose Calcium Phosphorus Magnesium Total Bilirubin AST ALT Alkaline Phosphatase Creatine Kinase Creatine Kinase Index CK-MB (CK-2) Troponin I Total Protein Albumin Triglycerides Cholesterol Total LDL Cholesterol HDL Cholesterol TSH Serum , Qual Urine Color Yellow Urine Appearance Clear Urine pH 6.5 D Ur Specific [place] 1.000 L Urine Protein Negative Urine Glucose (UA) Negative Urine Ketones Negative Urine Blood Negative Urine Nitrite Negative Urine Bilirubin Negative Urine Urobilinogen 0.2 Ur Leukocyte Esterase Negative Opiates Screen Methadone Screen Barbiturate Screen Phencyclidine Screen Ur Amphetamines Screen MDMA (Ecstasy) Screen Benzodiazepines Screen Cocaine Screen U Marijuana (THC) Screen 02/22/19 02/22/1919 18:20 18:20 18:20 WBC RBC Hgb Hct MCV MCH MCHC RDW Plt Count MPV Absolute Neuts (auto) Neutrophils % Lymphocytes % Monocytes % Eosinophils % Basophils % Nucleated RBC % PT with INR INR D-Dimer Sodium 137 Potassium 3.9 Chloride 104 Carbon Dioxide 27 Anion Gap 6 L BUN 7 Creatinine 0.6 Creat Clearance w eGFR 108.11 Random Glucose 97 Calcium 9.3 Phosphorus Magnesium 2.2 Total Bilirubin 0.4 AST 17 ALT 16 Alkaline Phosphatase 73 Creatine Kinase 210 H Creatine Kinase Index 1.2 CK-MB (CK-2) 2.6 Troponin I < 0.02 Total Protein 7.6 Albumin 3.9 Triglycerides Cholesterol Total LDL Cholesterol HDL Cholesterol TSH 1.52 Serum , Qual Negative Urine Color Urine Appearance Urine pH Ur Specific [place] Urine Protein Urine Glucose (UA) Urine Ketones Urine Blood Urine Nitrite Urine Bilirubin Urine Urobilinogen Ur Leukocyte Esterase Opiates Screen Methadone Screen Barbiturate Screen Phencyclidine Screen Ur Amphetamines Screen MDMA (Ecstasy) Screen Benzodiazepines Screen Cocaine Screen U Marijuana (THC) Screen 02/22/19 02/22/19 02/23/19 18:20 23:40 06:35 WBC 6.1 RBC 4.60 Hgb 14.5 Hct 41.9 MCV 91.1 MCH 31.5 MCHC 34.6 RDW 12.8 Plt Count 256 MPV 9.3 Absolute Neuts (auto) 3.7 Neutrophils % 61.3 Lymphocytes % 29.9 Monocytes % 5.8 Eosinophils % 2.5 Basophils % 0.5 Nucleated RBC % 0 PT with INR INR D-Dimer < 215 Sodium Potassium Chloride Carbon Dioxide Anion Gap BUN Creatinine Creat Clearance w eGFR Random Glucose Calcium Phosphorus Magnesium Total Bilirubin AST ALT Alkaline Phosphatase Creatine Kinase Creatine Kinase Index CK-MB (CK-2) Troponin I Total Protein Albumin Triglycerides Cholesterol Total LDL Cholesterol HDL Cholesterol TSH Serum , Qual Urine Color Urine Appearance Urine pH Ur Specific [place] Urine Protein Urine Glucose (UA) Urine Ketones Urine Blood Urine Nitrite Urine Bilirubin Urine Urobilinogen Ur Leukocyte Esterase Opiates Screen Negative Methadone Screen Negative Barbiturate Screen Negative Phencyclidine Screen Negative Ur Amphetamines Screen Negative MDMA (Ecstasy) Screen Negative Benzodiazepines Screen Negative Cocaine Screen Negative U Marijuana (THC) Screen Negative 02/23/19 06:35 WBC RBC Hgb Hct MCV MCH MCHC RDW Plt Count MPV Absolute Neuts (auto) Neutrophils % Lymphocytes % Monocytes % Eosinophils % Basophils % Nucleated RBC % PT with INR INR D-Dimer Sodium 141 Potassium 3.9 Chloride 107 Carbon Dioxide 26 Anion Gap 7 L BUN 6 L Creatinine 0.6 Creat Clearance w eGFR 108.11 Random Glucose 107 H Calcium 9.0 Phosphorus 3.7 Magnesium 2.2 Total Bilirubin AST ALT Alkaline Phosphatase Creatine Kinase Creatine Kinase Index CK-MB (CK-2) Troponin I Total Protein Albumin Triglycerides 83 Cholesterol 173 Total LDL Cholesterol 91 HDL Cholesterol 75 H TSH Serum , Qual Urine Color Urine Appearance Urine pH Ur Specific [place] Urine Protein Urine Glucose (UA) Urine Ketones Urine Blood Urine Nitrite Urine Bilirubin Urine Urobilinogen Ur Leukocyte Esterase Opiates Screen Methadone Screen Barbiturate Screen Phencyclidine Screen Ur Amphetamines Screen MDMA (Ecstasy) Screen Benzodiazepines Screen Cocaine Screen U Marijuana (THC) Screen Active Medications Generic Name Dose Route Start Last Admin Trade Name Freq PRN Reason Stop Dose Admin Acetaminophen 650 mg 02/23/19 16:25 02/23/19 16:45 Tylenol - PO 650 mg Q6H PRN Administration HEADACHE Diltiazem HCl 30 mg 02/23/19 00:00 02/23/19 17:22 Cardizem - PO 30 mg Q6HPO DIPAK Administration Enoxaparin Sodium 40 mg 02/23/19 10:00 02/23/19 10:29 Lovenox - SQ 40 mg DAILY DIPAK Administration ASSESSMENT/PLAN: 43 y/o F of HTN not on medications presented for progressively worsening chest pain and palpitations over past week with home BP measured at 190/110. new onset Afib -[id number] score is 2, will discuss AC, h/o of hemorrhoidal bleeding -continue Dilitiazem -TSH normal R/O ACS: -troponins negative -EKG no vika/std -Cardiology consulted -ECHo nl LV function, Nl LV size and fxn Normal RV size and fuction, Trace TR HTN -conr Dilitiazem PPX: mechanical DISPO: telemetry observation, DC tomorrow Problem List - Problems (1) Chest pain Code(s): R07.9 - CHEST PAIN, UNSPECIFIED (2) New onset atrial fibrillation Code(s): I48.91 - UNSPECIFIED ATRIAL FIBRILLATION (3) Sprain of foot, right Code(s): S93.601A - UNSPECIFIED SPRAIN OF RIGHT FOOT, INITIAL ENCOUNTER Qualifiers: Encounter type: initial encounter Qualified Code(s): S93.601A - Unspecified sprain of right foot, initial encounter (4) URI with cough and congestion Code(s): J06.9 - ACUTE UPPER RESPIRATORY INFECTION, UNSPECIFIED (5) Viral syndrome Code(s): B34.9 - VIRAL INFECTION, UNSPECIFIED Visit type - Emergency Visit Emergency Visit: Yes ED Registration Date: 02/22/19 Care time: The patient presented to the Emergency Department on the above date and was hospitalized for further evaluation of their emergent condition. - New Patient This patient is new to me today: Yes Date on this admission: 02/23/19 - Critical Care Critical Care patient: No - Discharge Referral Referred to [facility] Med P.C.: No
[2019-02-24] MEDS: dilTIAZem HCL 30 MG TABLET (FP) PO SCH ×2 (01:02→06:25)
[2019-02-24] MEDS: ACETAMINOPHEN 325 MG TABLET (FP) PO PRN (09:01)
--- NOTE | 2019-02-24 09:51 | DS ---
Physical Exam: SUBJECTIVE: Patient seen and examined, No complaints overnight. OBJECTIVE: Vital Signs Period Temp Pulse Resp BP Sys/Jay Pulse Ox Last 24 Hr 98 F-98 F 65-74 16-18 108-151/70-99 98-100 PHYSICAL EXAM GENERAL: The patient is awake, alert, and fully oriented, in no acute distress. HEAD: Normal with no signs of trauma. EYES: PERRL, extraocular movements intact, sclera anicteric, conjunctiva clear. ENT: Ears normal, nares patent, oropharynx clear without exudates, moist mucous membranes. NECK: Trachea midline, full range of motion, supple. LUNGS: Breath sounds equal, clear to auscultation bilaterally, no wheezes, no crackles, no accessory muscle use. HEART: Regular rate and rhythm, S1, S2 ABDOMEN: Soft, nontender, nondistended, normoactive bowel sounds, no guarding, no rebound EXTREMITIES: 2+ pulses, warm, well-perfused, no edema. NEUROLOGICAL: AAOx3, Cranial nerves II through XII grossly intact. Normal speech , gait not observed. PSYCH: Normal mood, normal affect. SKIN: Warm, dry, normal turgor, no rashes or lesions noted. LABS Laboratory Tests 02/22/19 02/22/19 02/22/19 18:01 18:20 18:20 WBC 9.8 RBC 4.65 Hgb 14.7 Hct 43.4 MCV 93.3 MCH 31.6 MCHC 33.8 RDW 12.9 Plt Count 263 MPV 9.5 Absolute Neuts (auto) 6.2 Neutrophils % 63.0 Lymphocytes % 27.8 D Monocytes % 6.3 Eosinophils % 2.3 Basophils % 0.6 Nucleated RBC % 0 PT with INR 11.90 INR 1.01 D-Dimer Sodium Potassium Chloride Carbon Dioxide Anion Gap BUN Creatinine Creat Clearance w eGFR Random Glucose Calcium Phosphorus Magnesium Total Bilirubin AST ALT Alkaline Phosphatase Creatine Kinase Creatine Kinase Index CK-MB (CK-2) Troponin I Total Protein Albumin Triglycerides Cholesterol Total LDL Cholesterol HDL Cholesterol TSH Serum , Qual Urine Color Yellow Urine Appearance Clear Urine pH 6.5 D Ur Specific [place] 1.000 L Urine Protein Negative Urine Glucose (UA) Negative Urine Ketones Negative Urine Blood Negative Urine Nitrite Negative Urine Bilirubin Negative Urine Urobilinogen 0.2 Ur Leukocyte Esterase Negative Urine HCG, Qual Negative Opiates Screen Methadone Screen Barbiturate Screen Phencyclidine Screen Ur Amphetamines Screen MDMA (Ecstasy) Screen Benzodiazepines Screen Cocaine Screen U Marijuana (THC) Screen 02/22/19 02/22/19 02/22/19 18:20 18:20 18:20 WBC RBC Hgb Hct MCV MCH MCHC RDW Plt Count MPV Absolute Neuts (auto) Neutrophils % Lymphocytes % Monocytes % Eosinophils % Basophils % Nucleated RBC % PT with INR INR D-Dimer Sodium 137 Potassium 3.9 Chloride 104 Carbon Dioxide 27 Anion Gap 6 L BUN 7 Creatinine 0.6 Creat Clearance w eGFR 108.11 Random Glucose 97 Calcium 9.3 Phosphorus Magnesium 2.2 Total Bilirubin 0.4 AST 17 ALT 16 Alkaline Phosphatase 73 Creatine Kinase 210 H Creatine Kinase Index 1.2 CK-MB (CK-2) 2.6 Troponin I < 0.02 Total Protein 7.6 Albumin 3.9 Triglycerides Cholesterol Total LDL Cholesterol HDL Cholesterol TSH 1.52 Serum , Qual Negative Urine Color Urine Appearance Urine pH Ur Specific [place] Urine Protein Urine Glucose (UA) Urine Ketones Urine Blood Urine Nitrite Urine Bilirubin Urine Urobilinogen Ur Leukocyte Esterase Urine HCG, Qual Opiates Screen Methadone Screen Barbiturate Screen Phencyclidine Screen Ur Amphetamines Screen MDMA (Ecstasy) Screen Benzodiazepines Screen Cocaine Screen U Marijuana (THC) Screen 02/22/19 02/22/19 02/23/19 18:20 23:40 06:35 WBC 6.1 RBC 4.60 Hgb 14.5 Hct 41.9 MCV 91.1 MCH 31.5 MCHC 34.6 RDW 12.8 Plt Count 256 MPV 9.3 Absolute Neuts (auto) 3.7 Neutrophils % 61.3 Lymphocytes % 29.9 Monocytes % 5.8 Eosinophils % 2.5 Basophils % 0.5 Nucleated RBC % 0 PT with INR INR D-Dimer < 215 Sodium Potassium Chloride Carbon Dioxide Anion Gap BUN Creatinine Creat Clearance w eGFR Random Glucose Calcium Phosphorus Magnesium Total Bilirubin AST ALT Alkaline Phosphatase Creatine Kinase Creatine Kinase Index CK-MB (CK-2) Troponin I Total Protein Albumin Triglycerides Cholesterol Total LDL Cholesterol HDL Cholesterol TSH Serum , Qual Urine Color Urine Appearance Urine pH Ur Specific [place] Urine Protein Urine Glucose (UA) Urine Ketones Urine Blood Urine Nitrite Urine Bilirubin Urine Urobilinogen Ur Leukocyte Esterase Urine HCG, Qual Opiates Screen Negative Methadone Screen Negative Barbiturate Screen Negative Phencyclidine Screen Negative Ur Amphetamines Screen Negative MDMA (Ecstasy) Screen Negative Benzodiazepines Screen Negative Cocaine Screen Negative U Marijuana (THC) Screen Negative 02/23/19 06:35 WBC RBC Hgb Hct MCV MCH MCHC RDW Plt Count MPV Absolute Neuts (auto) Neutrophils % Lymphocytes % Monocytes % Eosinophils % Basophils % Nucleated RBC % PT with INR INR D-Dimer Sodium 141 Potassium 3.9 Chloride 107 Carbon Dioxide 26 Anion Gap 7 L BUN 6 L Creatinine 0.6 Creat Clearance w eGFR 108.11 Random Glucose 107 H Calcium 9.0 Phosphorus 3.7 Magnesium 2.2 Total Bilirubin AST ALT Alkaline Phosphatase Creatine Kinase Creatine Kinase Index CK-MB (CK-2) Troponin I Total Protein Albumin Triglycerides 83 Cholesterol 173 Total LDL Cholesterol 91 HDL Cholesterol 75 H TSH Serum , Qual Urine Color Urine Appearance Urine pH Ur Specific [place] Urine Protein Urine Glucose (UA) Urine Ketones Urine Blood Urine Nitrite Urine Bilirubin Urine Urobilinogen Ur Leukocyte Esterase Urine HCG, Qual Opiates Screen Methadone Screen Barbiturate Screen Phencyclidine Screen Ur Amphetamines Screen MDMA (Ecstasy) Screen Benzodiazepines Screen Cocaine Screen U Marijuana (THC) Screen LE duplex neg for DVT 2D echo: Normal LV size and function, normal RV size and function, mildly enlarged left atrium, trace Tricuspid regurgitation HOSPITAL COURSE: Date of Admission:02/22/19 Date of Discharge: 02/24/19 Minutes to complete discharge: 40 Discharge Summary Reason For Visit: NEW ONSET ATRIAL FIBRILLATION Current Active Problems Chest pain (Acute) New onset atrial fibrillation (Acute) Hospital Course: 43 yof with PMHx of HTN not on meds admitted with chest pain, palpitations, BP 190/110s at home and found with new onset atrial fibrillation with RVR. She received cardizem 20 mg IV in the ED with improvement and was placed on cardizem 30 mg PO q6h. She reverted to sinus rhythm during her stay. She had 2D echo as above, no acute concerns or significant valvular disease. She was seen by cardiology and advised eliquis. Patient expressed concerns about h/o haemorrhoids, detailed discussion was held about the stroke and bleeding risk. Patient wanted to go on full dose AC, relaying full understanding of risks including bleeding, lack of antidote and need for monitoring and was placed on eliquis. She declined coumadin. She has been provided with 30 day free trial and advised to follow up with third helper and PCP for continued management. Condition: Stable - Instructions Diet, Activity, Other Instructions: You were admitted with high blood pressure and new irregular heart rhythm called "atrial fibrillation". Your heart is back into regular rhythm after medications. You were seen by cardiology and blood thinner has been advised. MEDICATIONS: New Medications: Cardizem CD 120 mg daily Eliquis 5 mg twice daily (Blood thinner) INSTRUCTIONS: Please note that eliquis can increase risk of bleeding. Extra caution to avoid cuts or scrapes and if any bleeding including haemorrhoidal that does not stop, come to emergency room. Please discuss with your doctor about [facility] haem[facility] given the [facility] need for blood thinner. Home BP monitoring daily till next doctor visit. FOLLOW UP: With Primary Care physician 1 week With [facility] in 1 week (information provided on the third helper who saw you in the hospital) Please discuss further outpatient testing including stress test If you notice any new dizziness, worsening headache or vision changes, chest pain, heart racing,dark stools, bleeding or any new concerns, please call 911 or come to the ED. Referrals: Tao Bishop MD [Staff Physician] - Bekah Anderson MD [Non Staff, Medical] - Disposition: HOME - Home Medications Comprehensive Discharge Medication List: Ambulatory Orders Apixaban [Eliquis] 5 mg PO BID #60 tablet 02/24/19 Diltiazem Cd [Cardizem Cd -] 120 mg PO DAILY #30 cap.cd.[id number] 02/24/19 This patient is new to me today: No Emergency Visit: Yes ED Registration Date: 02/22/19 Care time: The patient presented to the Emergency Department on the above date and was hospitalized for further evaluation of their emergent condition. Critical Care patient: No - Discharge Referral Referred to [facility] No
[2019-02-24] MEDS ORDERED: APIXABAN 5 MG TABLET PO SCH (10:00)
[2019-02-24 11:52] VITALS: BP 126/73; PULSE 60; TEMP 97.8
== END 2019-02-24 12:30 | disposition home or self-care (01) ==
LOC: JER 17:41 → INTOOBSV 20:34 → JERBED 20:34 → J2W 02-23 14:32
PROVIDERS: ADMIT Internal Medicine; ATTEND Hospitalist
PROC: 3E033GC Introduction of Other Therapeutic Substance into Peripheral Vein, Percutaneous Approach (ICD-10-PCS; principal; 2019-02-22)
PROC: 3E0337Z Introduction of Electrolytic and Water Balance Substance into Peripheral Vein, Percutaneous Approach (ICD-10-PCS; 2019-02-22)
PROC: 3E013GC Introduction of Other Therapeutic Substance into Subcutaneous Tissue, Percutaneous Approach (ICD-10-PCS; 2019-02-22)
DX: I48.91 Unspecified atrial fibrillation (principal); R07.89 Other chest pain; I10 Essential (primary) hypertension; E66.9 Obesity, unspecified; Z68.34 Body mass index [BMI] 34.0-34.9, adult; K64.9 Unspecified hemorrhoids; Z79.01 Long term (current) use of anticoagulants
CPT/HCPCS: 36415; 71045-TC-FY; 80048; 80053; 80061; 80307; 81003; 82550; 82553; 83721; 83735; 84100; 84443; 84484; 84703; 85025; 85379; 85610; 93005; 93010; 93306-TC; 93970-TC; 99285-25; G0378; J7030

== ENCOUNTER 2022-04-06 17:51 | Emergency (ER) | payer OTHER ==
[2022-04-06] MEDS ORDERED: diazePAM 5 MG TABLET PO ONE (18:13)
[2022-04-06] MEDS ORDERED: KETOROLAC TROMETHAMINE 30 MG/1 ML VIAL IVPUSH ONE (18:13)
[2022-04-06] MEDS ORDERED: diazePAM 5 MG TABLET ONE (18:15)
[2022-04-06] MEDS ORDERED: KETOROLAC TROMETHAMINE 30 MG/1 ML VIAL ONE (18:15)
[2022-04-06] MEDS ORDERED: KETOROLAC TROMETHAMINE 30 MG/1 ML VIAL IM ONE (18:17)
[2022-04-06 18:25] VITALS: BP 124/75; PULSE 74; TEMP 98; BMI 35.2
== END 2022-04-06 20:41 | disposition home or self-care (01) ==
LOC: FER 17:51
PROC: 3E0233Z Introduction of Anti-inflammatory into Muscle, Percutaneous Approach (ICD-10-PCS; principal; 2022-04-06)
DX: M54.2 Cervicalgia (principal); V49.40XA Driver injured in collision with unspecified motor vehicles in traffic accident, initial encounter
CPT/HCPCS: 70450-TC; 72125-TC; 99284-25